=== PATIENT | female | born 1960 | race Caucasian/White ===

== ENCOUNTER 2018-02-17 13:02 | Emergency (ER) | payer MEDICAID ==
[2018-02-17 13:12] VITALS: BP 130/75
--- NOTE | 2018-02-17 14:30 | XRAY Report ---
Reason: foot pain, dropped can onto foot Procedure Date: 02/17/2018 Accession Number: [id number] / [id number] Procedure: XR - Foot 3 View RT CPT Code: FULL RESULT: EXAM: RIGHT FOOT RADIOGRAPHY EXAM DATE: 02/17/2018 02:08 PM. CLINICAL HISTORY: Foot pain, dropped can onto foot. COMPARISON: None available. TECHNIQUE: 3 views. FINDINGS: The bones are osteopenic. There is severe hallux valgus deformity. No acute fracture or dislocation visualized. There are changes from old trauma to the proximal fourth and fifth metatarsals. Moderate to severe degenerative changes of the tarsometatarsal joints. No ankle joint effusion. No radiopaque foreign body. IMPRESSION: Osteopenia. No acute fracture or dislocation visualized. RADIA
--- NOTE | 2018-02-17 14:44 | ED Physician Documentation ---
PD HPI LOWER EXT INJURY - Stated complaint Stated Complaint: R FOOT INJ - Chief complaint Chief Complaint: Ext Problem - History obtained from History obtained from: Patient, Family - History of Present Illness PD HPI LOW EXT INJURY LOCATION: Right, Foot Type of injury: Blunt / blow Where injury occurred: Home Timing - onset: How many days ago (2) Timing - duration: Days Timing - details: Abrupt onset, Still present Improved by: Rest, Immobilization Worsened by: Moving, Palpating Associated symptoms: Swelling, Discolored. No: Weakness, Numbness Contributing factors: No: Anticoagulated Similar symptoms before: Diagnosis (foot fracture) Recently seen: Not recently seen - Additional information Additional information: 57-year-old female with severe foot deformity dropped a can on her foot and she has some swelling and tenderness to the lateral dorsal aspect of the right foot. She is able to bear some weight on the heel and ambulate that way. Review of Systems Constitutional: denies: Fever Nose: denies: Congestion Throat: denies: Sore throat Respiratory: denies: Cough GI: denies: Vomiting Skin: denies: Rash Musculoskeletal: reports: Extremity pain, Extremity swelling, Pain with weight bearing. denies: Neck pain, Back pain Neurologic: denies: Generalized weakness, Focal weakness, Numbness PD PAST MEDICAL HISTORY - Past Medical History Musculoskeletal: Chronic back pain - Past Surgical History Past Surgical History: Yes /[employer]: Tubal ligation - Present Medications Home Medications: Ambulatory Orders Medication Instructions Recorded Confirmed Methadone HCl 5 mg PO TID 11/03/12 02/17/18 Pentoxifylline 400 mg PO BID 11/12/14 02/17/18 predniSONE [Deltasone] 3 mg PO DAILY 11/12/14 02/17/18 Calcium Carbonate [Tums (Calcium 500 mg PO TID PRN 02/17/18 02/17/18 Carbonate 500mg)] Cholecalciferol (Vitamin D3) 1,000 unit PO DAILY 02/17/18 02/17/18 [Vitamin D3] Estradiol 0.05 mg Patch [Climara] 1 patch TOP 02/17/18 Hydrocodone/Acetaminophen 1 - 2 each PO Q6H PRN #14 tablet 02/17/18 [Hydrocodon-Acetaminophen 5-325] Polyethylene Glycol 3350 [Miralax] 17 gm PO DAILY 02/17/18 02/17/18 Progesterone,Micronized 100 mg PO DAILY 02/17/18 02/17/18 [Progesterone] - Allergies Allergies/Adverse Reactions: Allergies Allergy/AdvReac Type Severity Reaction Status Date / Time Penicillins Allergy Rash Verified 02/17/18 13:45 Sulfa (Sulfonamide Allergy Itching Verified 02/17/18 13:45 Antibiotics) - Social History Does the pt smoke?: Yes Smoking Status: Current every day smoker Does the pt drink ETOH?: No Does the pt have substance abuse?: No - POLST Patient has POLST: No PD ED PE NORMAL - Vitals Vital signs reviewed: Yes (normal ) - General General: No acute distress, Well developed/nourished - HEENT HEENT: Atraumatic, PERRL, EOMI - Respiratory Respiratory: No respiratory distress - Derm Derm: Normal color, Warm and dry, No rash - Extremities Extremities: Other (There is severe hallix valgus deformity and there is ecchymosis tenderness and swelling to the dorsolateral aspect of the right foot. Distal n/v is intact. maximaly swelling is over the mid shafts of #3&4. 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 No acute fracture or dislocation visualized.), EMP read indepedently, See rad report PD MEDICAL DECISION MAKING - ED course Complexity details: reviewed results, re-evaluated patient, considered differential, d/w patient, d/w family ED course: 57-year-old female with a contusion to the right foot has no evidence of fracture on x-ray examination she is able to stand and bear weight and demonstrates is here in the emergency department she would like some pain medication. Departure - Departure Disposition: 01 Home, Self Care Clinical Impression: Contusion of right foot Qualifiers: Encounter type: initial encounter Qualified Code(s): S90.31XA - Contusion of right foot, initial encounter Condition: Stable Instructions: ED Contusion Foot Follow-Up: Your, doctor [Other] Prescriptions: Hydrocodone/Acetaminophen [Hydrocodon-Acetaminophen 5-325] 1 - 2 each PO Q6H PRN #14 tablet PRN Reason: pain
== END 2018-02-17 15:26 | disposition home or self-care (01) ==
LOC: ED 13:02
DX: S90.31XA Contusion of right foot, initial encounter (principal); W22.8XXA Striking against or struck by other objects, initial encounter; Y92.009 Unspecified place in unspecified non-institutional (private) residence as the place of occurrence of the external cause; F17.200 Nicotine dependence, unspecified, uncomplicated
CPT/HCPCS: 99283

== ENCOUNTER 2019-08-19 16:22 | Outpatient (CLI) | payer MEDICAID ==
--- NOTE | 2019-08-27 09:14 | Mammography Report ---
BILATERAL DIGITAL SCREENING MAMMOGRAM 3D/2D: 08/19/2019 CLINICAL: Routine screening. No prior exams were available for comparison. The tissue of both breasts is heterogeneously dense. T his may lower the sensitivity of mammography. No significant masses, calcifications, or other findings are seen in either breast. IMPRESSION: NEGATIVE There is no mammographic evidence of malignancy. A 1 year screening mammogram is recommended. This exam was interpreted at Station ID: [id number]. NOTE: For mammograms, a report in lay terms will be sent to the patient. Approximately 15% of breast malignancies will not be visualized mammographically. In the management of a palpable breast mass, a negative mammogram must not discourage biopsy of a clinically suspicious lesion. Electronically Signed By: Catracho Cheng M.D. [email or web address]:08/26/2019 10:10:26 ACR BI-RADS Category 1: Negative 3341F PARENCHYMAL PATTERN: (D) - The breast(s) demonstrate(s) heterogeneously dense fibroglandular tracy maurice. BI-RADS CATEGORY: (1) - 1 RECOMMENDATION: (ANNUAL) - Recommend routine annual screening mammography. [id number] 1 year screening LATERALITY: (B)
== END 2019-08-19 16:23 | disposition home or self-care (01) ==
LOC: DI 16:22
DX: Z12.31 Encounter for screening mammogram for malignant neoplasm of breast (principal)
CPT/HCPCS: 77063; 77067

== ENCOUNTER 2021-10-17 14:28 | Outpatient (CLI) | payer MEDICAID ==
--- NOTE | 2021-10-19 10:16 | Mammography Report ---
BILATERAL DIGITAL SCREENING MAMMOGRAM 3D/2D: 10/17/2021 CLINICAL: Routine screening. Comparison is made to exams dated: 08/19/2019 mammogram - [facility], [facility] m[facility], and 08/28/2015 mammogram - [facility] [place]. Both breasts are heterogeneously dense, which may obscure small masses (category c / 51-75% glandula r tissue). No significant masses, calcifications, or other findings are seen in either breast. There has been no significant interval change. IMPRESSION: NEGATIVE There is no mammographic evidence of malignancy. A 1 year screening mammogram is recommended. Based on the Tyrer Cuzick model (a risk assessment model) the patients lifetime risk is 7.6% and her 10 year risk is 3.2%. According to the ACR, ACS, and NCCN guidelines, an annual breast MRI exam dorothea g with mammogram is recommended if the patients lifetime risk is 20% or greater. This exam was interpreted at Station ID: [id number]. NOTE: For mammograms, a report in lay terms will be sent to the patient. Approximately 15% of breast malignancies will not be visualized mammographically. In the management of a palpable breast mass, a negative mammogram must not discourage biopsy of a clinically suspicious lesion. Electronically Signed By: Angel [email or web address]:10/18/2021 13:17:49 ACR BI-RADS Category 1: Negative 3341F PARENCHYMAL PATTERN: (D) - The breast(s) demonstrate(s) heterogeneously dense fibroglandular tracy maurice. BI-RADS CATEGORY: (1) - 1 RECOMMENDATION: (ANNUAL) - Recommend routine annual screening mammography. [id number] 1 year screening LATERALITY: (B)
== END 2021-10-17 14:29 | disposition home or self-care (01) ==
LOC: DI 14:28
PROVIDERS: ATTEND Nurse Practitioner Adult Health
DX: Z12.31 Encounter for screening mammogram for malignant neoplasm of breast (principal)

== ENCOUNTER 2021-10-17 14:29 | Outpatient (CLI) | payer MEDICAID ==
--- NOTE | 2021-10-17 16:44 | DEXA Report ---
PROCEDURE: Dexa Spine and/or Hip INDICATIONS: OSTEOPENIA, POST MENOPAUSAL TECHNIQUE: Dual energy x-ray absorptiometry (DXA) was performed on a [employer] System. Regions measur ed are the AP Spine, femoral neck, and if needed forearm. COMPARISON: None. FINDINGS: Lumbar Spine: Bone Mineral Density 0.889 g/cm/cm,T score -2.4, osteopenia Left total Hip: Bone Mineral Density 0.668 g/cm/cm,T score -2.7, osteoporosis Left Femoral Neck: Bone Mineral Density 0.761 g/cm/cm, T score -2.0, osteopenia (T score greater or equal to -1.0: NORMAL) (T score from -1.1 to -2.4: OSTEOPENIA) (T score less than or equal to -2.5 to: OSTEOPOROSIS) Impression: Osteoporosis Patients with diagnosis of osteoporosis or osteopenia should have regular bone mineral density assess ment. For those eligible for Medicare, routine testing is allowed once every 2 years. Testing frequ ency can be increased for patients who have rapidly progressing disease or for those who are receivin g medical therapy to restore bone mass. Reviewed by: Moncho Brizuela on 10/17/2021 4:42 PM PDT Approved by: Moncho Brizuela on 10/17/2021 4:42 PM PDT Station ID: [id number]
== END 2021-10-17 14:30 | disposition home or self-care (01) ==
LOC: DI 14:29
PROVIDERS: ATTEND Nurse Practitioner Adult Health
DX: Z78.0 Asymptomatic menopausal state (principal); M81.0 Age-related osteoporosis without current pathological fracture

== ENCOUNTER 2022-04-26 14:12 | Outpatient (CLI) | payer MEDICAID ==
--- NOTE | 2022-04-26 15:22 | XRAY Report ---
PROCEDURE: Lumbar Spine 2 View INDICATIONS: LOW BACK PAIN TECHNIQUE: 3 views of the lumbar spine were acquired. COMPARISON: None. FINDINGS: Bones: 5 [id number] vertebrae are present. Generalized osteopenia. There is grade 2 anterolisth esis of L5 on S1 measuring approximately 18 mm. There is also 8 mm grade 1 anterolisthesis of L4 on L 5. No vertebral body compression fractures. No suspicious bony lesions. Severe disc space narrowing is seen at the L4-5 and L5-S1 level and there is chronic remodeling of the posterior inferior endpla te of L5. Multilevel facet hypertrophy. Soft tissues: Overlying bowel gas pattern is normal. No suspicious soft tissue calcifications. IMPRESSION: 1.Prominent grade 2-3 anterolisthesis of L5 on S1 and mild grade 1 anterolisthesis of L4-L5. 2.Multilevel spondylosis is most severe at L5-S1 level. MRI lumbar spine could be performed for furth er evaluation if indicated clinically. 3.Generalized osteopenia. Reviewed by: Griffin Stokes MD on 04/26/2022 3:21 PM PST Approved by: Griffin Stokes MD on 04/26/2022 3:21 PM PST Station ID: [id number]
== END 2022-04-26 14:13 | disposition home or self-care (01) ==
LOC: DI 14:12
PROVIDERS: ATTEND Nurse Practitioner Adult Health
DX: M47.816 Spondylosis without myelopathy or radiculopathy, lumbar region (principal); M47.817 Spondylosis without myelopathy or radiculopathy, lumbosacral region; M43.17 Spondylolisthesis, lumbosacral region; M85.88 Other specified disorders of bone density and structure, other site